=== PATIENT | female | born 1945 | race Caucasian/White ===

== ENCOUNTER 2017-09-12 12:15 | Emergency (ER) | payer MEDICARE, SELFPAY ==
[2017-09-12 12:18] VITALS: BP 121/100; PULSE 87; RESP 16; TEMP 36; O2SAT 96; BMI 28.2
--- NOTE | 2017-09-12 12:19 | ED.ABDPAIN ---
HPI - Abdominal Pain General Chief Complaint: Abdominal Pain Stated Complaint: Abdominal pain Time Seen by Provider: 09/12/17 12:18 Source: patient Mode of arrival: EMS Limitations: no limitations History of Present Illness HPI narrative: patient is a 71-year-old female with a history of controlled Parkinson's disease brought in from the [facility] by air ambulance for concerns of left lower quadrant abdominal pain. Patient states that on Tuesday of last week she developed urinary frequency. She states the symptoms were similar to prior urinary tract infections. she was able to make contact with her primary doctor who told her to start taking Keflex that she already had at home. She has been taking that since Tuesday. She states that this morning after breakfast she had a fairly sudden onset of pretty severe left lower quadrant abdominal pain. No fevers. No change in urine. No change in bowel. No prior abdominal surgeries. States that the symptoms improved after she received pain medication by the EMS crew brought her here to the emergency department. She states that her urinary symptoms that she had on Tuesday have improved. Related Data Home Medications Medication Instructions Recorded Confirmed Disabled Parking Permit 1 ea MISCELLANEOUS DIRECTED 09/12/17 09/12/17 carbidopa-levodopa [Sinemet CR] 1 tab PO BID 09/12/17 09/12/17 pramipexole 1.5 mg PO BID 09/12/17 09/12/17 Allergies Allergy/AdvReac Type Severity Reaction Status Date / Time Sulfa (Sulfonamide Allergy Unknown NOT SURE Verified 09/12/17 13:40 Antibiotics) [SULFA (SULFONAMIDE ANTIBIOTICS)] Review of Systems Constitutional Denies fever(s) and Denies headache(s) ENT Ears, Nose, Mouth, and Throat: Denies vertigo and Denies headache(s) Cardiovascular Denies chest pain, Denies palpitations and Denies dyspnea Respiratory Denies chest congestion, Denies cough and Denies dyspnea Gastrointestinal Gastrointestinal: Reports abdominal pain, Denies constipation, Denies heartburn, Denies diarrhea, Denies nausea and Denies vomiting Genitourinary Denies dysuria and Denies flank pain Musculoskeletal Denies myalgias and Denies arthralgias Integumentary/Breasts Denies lesions, Denies rash and Denies wounds Neurologic Denies confusion, Denies vertigo and Denies headache(s) Psychiatric Denies confusion Endocrine Denies palpitations Hematologic/Lymphatic Denies easy bleeding and Denies easy bruising Exam Initial Vital Signs Initial Vital Signs: Vital Signs Temperature 96.8 F L 09/12/17 12:18 Pulse Rate 87 09/12/17 12:18 Respiratory Rate 16 09/12/17 12:18 Blood Pressure 121/100 H 09/12/17 12:18 Pulse Oximetry 96 09/12/17 12:18 Const General: cooperative, comfortable and No acute distress Orientation: alert, awake and oriented x3 HENMT Head: normal to inspection, normocephalic and atraumatic Resp Effort & Inspection: normal respiratory effort and able to speak in complete sentences Auscultation: clear to auscultation bilaterally Cardio Rate: regular rate Rhythm: regular rhythm Pulses: radial pulses present GI Inspection: non-distended Palpation: soft, No firm, No guarding and tender ( Left lower quadrant pain) Back/Spine/Pelvis Back: No CVA tenderness Skin Lesions: no lesions Rashes: no rashes Extrem Other: Course Orders Ordered: ED Orders 09/12/17 12:40 Complete Blood Count AUTO DIFF Stat Comprehensive Metabolic Panel Stat Lactate (Lactic Acid) Stat Lipase Stat 09/12/17 12:51 CT abdomen pelvis w con Stat 09/12/17 12:52 Urinalysis and Microscopic Stat Sodium Chloride (Normal Saline 0.9%) 1,000 mls @ 500 mls/hr IV BOLUS ONE Stop: 09/12/17 14:50 Last Admin: 09/12/17 13:41 Dose: 500 mls/hr Vital Signs - 8 hr 09/12/17 12:18 09/12/17 13:46 Temperature 96.8 F L Pulse Rate 87 82 Respiratory Rate 16 15 Blood Pressure 121/100 H Blood Pressure [Left Arm] 134/62 H Pulse Oximetry 96 99 MDM - Abdominal Pain Medical Records Attestation: I reviewed the patient's medical records. Lab Data Attestation: I reviewed the patient's lab results. Result diagrams: 09/12/17 12:40 09/12/17 12:40 Lab Results 09/12/17 09/12/17 09/12/17 Range/Units 12:40 12:40 12:40 WBC 9.7 (4.5-11.0) X10^3/uL RBC 4.35 (4.0-5.2) X10^6/uL Hgb 12.8 (12.0-16.0) g/dL Hct 37.5 (36-46) % MCV 86.2 (80-100) fL MCH 29.5 (26-34) PG MCHC 34.2 (30-36) % RDW 13.4 (11.6-14.8) % Plt Count 303 (150-400) X10^3/uL Neut % (Auto) 62.3 (50-75) % Lymph % (Auto) 27.7 (25-40) % [place] % (Auto) 7.7 (3-14) % Eos % (Auto) 1.6 L (2-4) % Baso % (Auto) 0.7 (0-2) % Neut # (Auto) 6100 H (7631-6043) /uL Sodium 139 (137-145) mmol/L Potassium 4.5 (3.4-5.1) mmol/L Chloride 107 (98-107) mmol/L Carbon Dioxide 25 (22-32) mmol/L BUN 31 H (7-17) mg/dL Creatinine 0.70 (0.52-1.04) mg/dL Estimated GFR > 60.0 (>60) mL/min BUN/Creatinine Ratio 44.3 H (6-22) Glucose 88 (80-110) mg/dL Lactate 0.7 (0.7-2.1) mmol/L Calcium 9.1 (8.4-10.2) mg/dL Total Bilirubin 0.6 (0.2-1.3) mg/dL AST 20 (14-36) IU/L ALT 13 (9-52) IU/L Alkaline Phosphatase 108 (38-126) U/L Total Protein 7.0 (6.3-8.2) g/dL Albumin 4.0 (3.5-5.0) g/dL Globulin 3.0 (1.7-4.1) g/dL Albumin/Globulin Ratio 1.3 (1.0-2.8) Lipase 93 (23-300) U/L Point of care testing: Urine Dip Bedside Urine Glucose Negative Bedside Urine Bilirubin - Negative Bedside Urine Ketone - Negative Urine Specific [place] 1.030 Bedside Urine Occult Blood - Negative Bedside Urine pH 6.0 Bedside Urine Protein - Negative Bedside Urine Urobilinogen - Negative Bedside Urine Nitrite - Negative Bedside Urine Leukocytes - Negative Esterase Imaging Data CT scan - abdomen: Radiologist's impression: PROCEDURE: CT ABDOMEN PELVIS W CON INDICATIONS: Left-sided abdominal pain for last 3 days TECHNIQUE: After the administration of intravenous contrast, 5 mm thick sections acquired from the diaphragm to the symphysis. 5 mm coronal and sagittal reformats were acquired. For radiation dose reduction, the following was used: automated exposure control, adjustment of mA and/or kV according to patient size. COMPARISON: None. FINDINGS: Image quality: Excellent. ABDOMEN: Lung bases: Lung bases are clear. Heart size is normal. Solid organs: Liver is normal in size and enhancement. Gallbladder contains a single visualized calcified gallstone measuring approximately 3 x 4 mm. Biliary system is non dilated. Pancreas enhances normally. Spleen is normal in size and enhancement. No adrenal nodules. Kidneys demonstrate normal size and enhancement, without hydronephrosis. Peritoneum and bowel: Bowel loops demonstrate normal wall thickness and caliber. No free fluid or air. Nodes and vessels: No retroperitoneal or mesenteric adenopathy by size criteria. Aorta and inferior vena cava are normal in size. Miscellaneous: No ventral hernias. PELVIS: Genitourinary: Bladder wall thickness is normal. Miscellaneous: No inguinal hernias or adenopathy. Normal appendix found right lower quadrant. No evidence of acute appendicitis or diverticulitis. Bones: No suspicious bony lesions. No vertebral body compression fractures. IMPRESSION: A definite source of left-sided pain is not seen. A densely calcified small gallstone is seen within the gallbladder lumen but there is no sign of acute cholecystitis or biliary obstruction. Dictated by: Rocael Ledesma M.D. on 09/12/2017 at 13:48 Approved by: Rocael Ledesma M.D. on 09/12/2017 at 13:51 [facility] Narrative Medical decision making narrative: patient reports that her abdominal pain is now a 1 or 2/10. The fentanyl that she has received by EMS as certainly worn off by this time. She has a nonsurgical abdomen on my repeat exam. CT scan shows no acute intra-abdominal pathology. Her urinalysis was negative however she has been on a couple days of Keflex thus far. She was instructed she needed to continue the treatment for this despite the urinalysis today. No definitive etiology was found for her left lower quadrant abdominal pain. No indication for surgical consultation. No indication for admission to the hospital. No indication for switching her medications around. Her physical exam is not consistent with pyelonephritis. I discussed all this with the patient and her medical power of traffic law attorney was at bedside. They were given return precautions. They both expressed understanding and agreement with plan. Discharge Plan Departure Patient Disposition: Home, Self-Care Clinical Impression: Abdominal pain Instructions: DI for Abdominal Pain-Adult Activity Restrictions/Additional Instructions: recommend that you continue all of your antibiotics as directed. Continue a full 5 day course of the Keflex like we discussed. No definitive etiology was found of your abdominal pain today however the CT scan did not show any signs of emergent surgical or infectious issues. Return to the emergency department for any new or worsening symptoms. Call your primary care doctor for a follow-up in the next couple days. Prescriptions: No Action carbidopa-levodopa [Sinemet CR] 50-200 mg Tablet Extended Release 1 tab PO BID RF: 0 Disabled Parking Permit 1 ea miscellaneous DIRECTED RF: 0 pramipexole 1.5 mg Tablet 1.5 mg PO BID RF: 0
--- NOTE | 2017-09-12 12:42 | PC.NURSE ---
Pt reports she had frequency and lower abdominal pain on , 09/08. She called into the local clinic on [address] and stated she had Keflex at home that she was instructed to take for a UTI. She did not have a urine sample performed. Today she woke up with returning pain. Denies dysuria.
--- NOTE | 2017-09-12 12:51 | DI.CT.S_ITS ---
PROCEDURE: CT ABDOMEN PELVIS W CON INDICATIONS: Left-sided abdominal pain for last 3 days TECHNIQUE: After the administration of intravenous contrast, 5 mm thick sections acquired from the diaphragm to the symphysis. 5 mm coronal and sagittal reformats were acquired. For radiation dose reduction, the following was used: automated exposure control, adjustment of mA and/or kV according to patient size. COMPARISON: None. FINDINGS: Image quality: Excellent. ABDOMEN: Lung bases: Lung bases are clear. Heart size is normal. Solid organs: Liver is normal in size and enhancement. Gallbladder contains a single visualized calcified gallstone measuring approximately 3 x 4 mm. Biliary system is non dilated. Pancreas enhances normally. Spleen is normal in size and enhancement. No adrenal nodules. Kidneys demonstrate normal size and enhancement, without hydronephrosis. Peritoneum and bowel: Bowel loops demonstrate normal wall thickness and caliber. No free fluid or air. Nodes and vessels: No retroperitoneal or mesenteric adenopathy by size criteria. Aorta and inferior vena cava are normal in size. Miscellaneous: No ventral hernias. PELVIS: Genitourinary: Bladder wall thickness is normal. Miscellaneous: No inguinal hernias or adenopathy. Normal appendix found right lower quadrant. No evidence of acute appendicitis or diverticulitis. Bones: No suspicious bony lesions. No vertebral body compression fractures. IMPRESSION: A definite source of left-sided pain is not seen. A densely calcified small gallstone is seen within the gallbladder lumen but there is no sign of acute cholecystitis or biliary obstruction. Dictated by: Rocael Ledesma M.D. on 09/12/2017 at 13:48 Approved by: Rocael Ledesma M.D. on 09/12/2017 at 13:51
[2017-09-12 13:07] LABS: Add Manual Diff / Slide Review NO; Basophils Percent Auto 0.7 % (0-2); Eosinophils Percent Auto 1.6 % (2-4); Hematocrit 37.5 % (36-46); Hemoglobin 12.8 g/dL (12.0-16.0); Lymphocytes Percent Auto 27.7 % (25-40); Mean Corpuscular HGB Conc 34.2 % (30-36); Mean Corpuscular Hemoglobin 29.5 PG (26-34); Mean Corpuscular Volume 86.2 fL (80-100); Monocytes Percent Auto 7.7 % (3-14); Neutrophils Absolute Auto 6100 /uL (3000-5900); Neutrophils Percent Auto 62.3 % (50-75); Platelet Count 303 X10^3/uL (150-400); Red Blood Cell Count 4.35 X10^6/uL (4.0-5.2); Red Cell Distribution Width 13.4 % (11.6-14.8); White Blood Cell Count 9.7 X10^3/uL (4.5-11.0)
[2017-09-12 13:21] LABS: Alanine Aminotransferase 13 IU/L (9-52); Albumin Globulin Ratio 1.3 (1.0-2.8); Alkaline Phosphatase 108 U/L (38-126); Aspartate Aminotransferase 20 IU/L (14-36); BUN Creatinine Ratio 44.3 (6-22); Bilirubin Total 0.6 mg/dL (0.2-1.3); Blood Urea Nitrogen 31 mg/dL (7-17); Calcium 9.1 mg/dL (8.4-10.2); Carbon Dioxide 25 mmol/L (22-32); Chloride 107 mmol/L (98-107); Estimated Glomerular Filt Rate > 60.0 mL/min (>60); Glucose 88 mg/dL (80-110); Lipase 93 U/L (23-300); Potassium 4.5 mmol/L (3.4-5.1); Sodium 139 mmol/L (137-145)
[2017-09-12 13:22] LABS: HEMOLYSIS 58 (0-50)
[2017-09-12 13:23] LABS: Lactate (Lactic Acid) 0.7 mmol/L (0.7-2.1)
[2017-09-12] MEDS: SODIUM CHLORIDE 0.9% 1,000 ML 500 ML IV (13:41)
[2017-09-12 13:46] VITALS: BP 134/62; PULSE 82; RESP 15; O2SAT 99
== END 2017-09-12 14:33 | disposition home or self-care (01) ==
PROVIDERS: Emergency Provider Emergency Medicine; PCP Family Medicine
DX: R10.9 Unspecified abdominal pain (principal)
CPT/HCPCS: 36415; 74177; 80053; 81003; 83605; 83690; 85025; 96360; 99283; 99285

== ENCOUNTER → 2021-09-18 11:43 | Outpatient (CLI) | payer OTHER, MEDICARE, SELFPAY ==
[2021-09-18 18:42] LABS: Appearance Urine UA CLOUDY; Bilirubin Urine UA NEGATIVE (NEGATIVE); Color Urine UA YELLOW; Glucose Urine UA NEGATIVE (Negative); Ketones Urine UA TRACE (NEGATIVE); Leukocyte Esterase Urine UA NEGATIVE (NEGATIVE); Nitrite Urine UA NEGATIVE (Negative); Occult Blood Urine UA NEGATIVE (Negative); Protein Urine UA 1+ (Negative); Urobilinogen Urine UA 0.2 E.U./dL (0.2)
[2021-09-18 19:01] LABS: Amorphous Sediment Urine 2+; Bacteria Urine None Seen; Calcium Oxalate Crystals Urine Moderate; Culture Indicated Urine Cult Not Indicated; Mucus Urine 1+ (Negative); RBC Urine None Seen (0-5/HPF); Squamous Epithelial Cell Urine 0-1 /HPF (0-5/HPF); WBC Urine 0-1/HPF (0-5/HPF)
== END ==
PROVIDERS: PCP Family Medicine; Visit Provider Family Medicine
DX: N39.0 Urinary tract infection, site not specified (principal)
CPT/HCPCS: 81001

== ENCOUNTER → 2023-01-05 11:51 | Outpatient (CLI) | payer MEDICARE, SELFPAY ==
[2023-01-05 19:56] LABS: Add Manual Diff / Slide Review NO; Basophils Absolute Auto 0 /uL (0-100); Basophils Percent Auto 0.4 % (0-2); Eosinophils Absolute Auto 100 /uL (0-450); Eosinophils Percent Auto 0.7 % (2-4); Hematocrit 39.1 % (36-46); Hemoglobin 13.2 g/dL (12.0-16.0); Lymphocytes Absolute Auto 2100 /uL (1100-4500); Lymphocytes Percent Auto 24.1 % (25-40); Mean Corpuscular HGB Conc 33.8 % (30-36); Mean Corpuscular Hemoglobin 30.1 PG (26-34); Mean Corpuscular Volume 89.1 fL (80-100); Monocytes Absolute Auto 600 /uL (0-900); Monocytes Percent Auto 6.9 % (3-14); Neutrophils Absolute Auto 5800 /uL (1500-7000); Neutrophils Percent Auto 67.9 % (50-75); Platelet Count 340 X10^3/uL (150-400); Red Blood Cell Count 4.38 X10^6/uL (4.0-5.2); Red Cell Distribution Width 13.1 % (11.6-14.8); White Blood Cell Count 8.6 X10^3/uL (4.5-11.0)
[2023-01-05 20:13] LABS: BUN Creatinine Ratio 37.3 (6-22); Blood Urea Nitrogen 28 mg/dL (7-17); Calcium 9.6 mg/dL (8.4-10.2); Carbon Dioxide 23 mmol/L (22-32); Chloride 107 mmol/L (98-107); Estimated Glomerular Filt Rate > 60 mL/min (>60); Glucose 89 mg/dL (80-110); HEMOLYSIS < 15 (0-50); Potassium 4.4 mmol/L (3.4-5.1); Sodium 139 mmol/L (137-145)
[2023-01-05 20:36] LABS: TSH w/ Reflex to FT4 0.68 uIU/mL (0.47-4.68)
== END ==
PROVIDERS: PCP Family Medicine; Visit Provider Family Medicine
DX: F33.42 Major depressive disorder, recurrent, in full remission (principal); F32.9 Major depressive disorder, single episode, unspecified; R53.83 Other fatigue; R41.89 Other symptoms and signs involving cognitive functions and awareness; Z13.220 Encounter for screening for lipoid disorders; Z87.442 Personal history of urinary calculi; G20.A1 Parkinson's disease without dyskinesia, without mention of fluctuations
CPT/HCPCS: 80048; 84443; 85025

== ENCOUNTER → 2023-07-14 13:39 | Outpatient (CLI) | payer MEDICARE, SELFPAY ==
[2023-07-14 21:39] LABS: Appearance Urine UA CLEAR; Bilirubin Urine UA NEGATIVE (NEGATIVE); Color Urine UA YELLOW; Glucose Urine UA NEGATIVE (Negative); Ketones Urine UA NEGATIVE (NEGATIVE); Leukocyte Esterase Urine UA 1+ (NEGATIVE); Nitrite Urine UA POSITIVE (Negative); Occult Blood Urine UA NEGATIVE (Negative); Protein Urine UA TRACE (Negative); Specific Gravity Urine UA >=1.030 (1.000-1.035); Urobilinogen Urine UA 0.2 E.U./dL (0.2)
[2023-07-14 21:43] LABS: Bacteria Urine Many (>30); Culture Indicated Urine Specimen Cultured; RBC Urine 0-1/HPF (0-5/HPF); Squamous Epithelial Cell Urine 0-1 /HPF (0-5/HPF); Urine Volume 10mL (spun); WBC Urine 10-30/HPF (0-5/HPF)
== END ==
PROVIDERS: PCP Family Medicine; Visit Provider Physician Assistant
DX: Z91.89 Other specified personal risk factors, not elsewhere classified (principal)
CPT/HCPCS: 81001; 87077; 87086

== ENCOUNTER → 2023-08-31 09:31 | Outpatient (CLI) | payer MEDICARE, SELFPAY ==
--- NOTE | 2023-08-31 09:33 | DI.MRI.S_ITS ---
PROCEDURE: MR LUMBAR SPINE WO CON INDICATIONS: lumbar radiculopathy TECHNIQUE: Noncontrast sagittal T1 spin echo and T2 fast echo, sagittal STIR, and T2 fast spin echo through the lumbar spine. In cases with scoliosis, additional coronal T2 fast spin echo may be performed. COMPARISON: None. FINDINGS: Image quality: Excellent. Alignment and Curvature: Dextroscoliotic curvature. Mild retrolisthesis of L1 on L2, L2 on L3 and L3 on L4. Grade 1 anterolisthesis of L4 on L5 and L5 on S1. Bone Marrow: Multilevel Modic type 2 degenerative endplate changes. Marrow is of normal overall signal. No acute vertebral body compression fractures. Spinal Cord: Conus medullaris terminates at the L2 level. Visualized cord demonstrates normal signal and size. Paraspinous Soft Tissues: No paravertebral masses. T12-L1: Disc desiccation and moderate disc height loss. Mild disc bulge. No significant central canal or neural foraminal stenosis. L1-L2: Disc desiccation is severe disc height loss. Mild disc bulge. No central canal stenosis. Mild bilateral neural foraminal stenosis. L2-L3: Disc desiccation and severe disc height loss. Mild disc bulge. Facet arthropathy. Mild central canal stenosis. Moderate bilateral neural foraminal stenosis. L3-L4: Disc desiccation and moderate disc height loss. Posterior disc bulge, asymmetric to the right. Facet arthropathy and thickening of ligamentum flavum. Moderate central canal stenosis. Severe right and moderate left neural foraminal stenosis. L4-L5: Disc desiccation and moderate disc height loss. Mild disc bulge. Facet arthropathy and thickening of ligamentum flavum. Moderate central canal stenosis. Severe right and moderate left neural foraminal stenosis. L5-S1: Disc desiccation and moderate disc height loss. Posterior disc bulge. Facet arthropathy and thickening of the ligamentum flavum. Mild central canal stenosis. Severe right and moderate left neural foraminal stenosis. IMPRESSION: 1. Multilevel degenerative changes of the lumbar spine with dextroscoliotic curvature. 2. Moderate central canal stenosis at L3-L4 and L4-5. 3. Severe neural foraminal stenosis on the right at L3-L4, L4-L5 and L5-S1. Dictated by: John Quinones M.D. on 08/31/2023 at 12:02 Approved by: John Quinones M.D. on 08/31/2023 at 12:08
== END ==
LOC: MRI 09:33
PROVIDERS: PCP Family Medicine; Referring Provider Family Medicine; Visit Provider Family Medicine
DX: M47.26 Other spondylosis with radiculopathy, lumbar region (principal); M47.27 Other spondylosis with radiculopathy, lumbosacral region; M48.061 Spinal stenosis, lumbar region without neurogenic claudication; M48.07 Spinal stenosis, lumbosacral region; M41.9 Scoliosis, unspecified
CPT/HCPCS: 72148

== ENCOUNTER 2024-04-19 12:22 | Outpatient (CLI) | payer MEDICARE, MEDICAID, SELFPAY ==
[2024-04-19] VITALS (9 sets, daily range): BP systolic 123–139; BP diastolic 61–81; PULSE 70–85; RESP 16–20; TEMP 36.6; O2SAT 96–100
--- NOTE | 2024-04-19 12:23 | DI.RAD.S_ITS ---
PROCEDURE: PAIN L INTERLAMINAR/CAUDAL INJ INDICATIONS: para Right L4/5 TL NIECY COMPARISON: None. FINDINGS/IMPRESSION: Fluoroscopic spot filming was performed to verify placement of spinal needles at the L4-5 level(s), as labeled on the films. Appropriate location(s) of the needle tip(s) was confirmed by injection of iodinated contrast. Dictated by: Xiomara Mayes M.D. on 04/19/2024 at 16:40 Approved by: Xiomara Mayes M.D. on 04/19/2024 at 16:40
--- NOTE | 2024-04-19 13:32 | P.PCN_ITS ---
Date/Time/Diagnoses Date of procedure: 04/19/24 Time of procedure: 14:07 Pre-procedure diagnosis: 1. HNP WITH RADICULAR FEATURES, 2. MULTILEVEL CENTRAL STENOSIS, Post-procedure diagnosis: same Procedure Notes Procedure: 1. FLUOROSCOPICALLY GUIDED CONTRAST CONTROLLED INTERLAMINAR EPIDURAL STEROID INJECTION - L3/4 Indications: More is referred by Dr. Osborn for treatment of Bilateral Foraminal Stenosis L>R LE symptoms. Physician: Joe Lopez Total Fluoroscopy time (seconds): 8 Total sedation minutes: 14 Complications: none Procedure in detail & Post-procedure care: FINDINGS Multilevel Central Spinal Stenosis with Nerve Root Compression DESCRIPTION OF PROCEDURE Fluoroscopically guided, contrast-controlled L3/4 translaminar epidural steroid injection. Following review of allergy and review of potential side effects and complications, including, but not necessarily limited to, infection, allergic reaction, local tissue breakdown, temporary as well as permanent nerve injury, paralysis, stroke and possible , the patient indicated that the patient understood and agreed to proceed. An informed consent document was signed by the patient, witnessed by a nurse, and placed in the patient's chart. Additionally, other treatment options including modalities, medications, and physical therapy were reviewed with the patient. After review of previous anaesthesic history and IV conscious sedation the patient was deemed safe to proceed with today?s procedure with IV conscious sedation as ASA class II designation. Safety time-out was performed to confirm patient ID, procedure to be performed and site of procedure. IV sedation was accomplished with a combination of 1mg of Versed was administered by the RN after DO order, titrated to patient comfort during the course of the procedure while the patient remained responsive to all verbal commands. In the prone position, following sterile prep and drape of the lumbar region, the L3/4 translaminar space was identified fluoroscopically. The skin was anesthetized via a 25-gauge, 1.5-inch needle with 1% lidocaine solution. At this point, a 22-gauge short bevel spinal needle was atraumatically introduced and advanced under fluoroscopic guidance into the region of the L3/4 translaminar space. Depth was confirmed on lateral view. Radiological data, including multiple fluoroscopic views of the lumbar spine, reveal a spinal needle at the L3/4 translaminar space. Lateral views then show placement of the needle in the epidural space. Subsequent views show contrast material flowing superiorly and inferiorly in the epidural space. No vascular or intrathecal uptake is observed. At this point, using loss of resistance technique with saline and air, the epidural space was entered. This was confirmed following negative aspiration with injection of approximately 1.5 cc of Isovue 200, showing excellent epidural flow without vascular or intrathecal uptake. At this point, 1cc of 1% lidocaine solution combined with 2cc or 10mg of dexamethasone and 6mg of betamethasone was injected without incident. The patient tolerated the procedure well without signs or symptoms of complications prior to transfer to the recovery area continued monitoring without incident. The patient was then transferred to the recovery area where they were observed for an appropriate period of time after the injection. The patient reported a VAS score of 8 prior to the procedure and a post- procedure VAS of 1. POST OP INSTRUCTIONS The patient was provided a Pain Log to continue to record their response to the target-specific procedure prior to follow-up visit with their referring physician. Additionally, specific post-injection care instructions and a contact number to our office were provided if concerns arise regarding possible complications associated with the procedure are suspected.
[2024-04-19] MEDS: MIDAZOLAM 2 MG/2 ML VIAL 1 MG IV (14:12)
[2024-04-19] MEDS: BETAMETHASONE 30 MG/5 ML MDV 12 MG INJ (14:18)
[2024-04-19] MEDS: iopamidoL 15 ML VIAL 3 ML INJ (14:18)
[2024-04-19] MEDS: DEXAMETHASONE 10 MG/ML VIAL INJ (14:19)
[2024-04-19] MEDS: BUPIVACAINE 0.25% (PF) VIAL 2 ML INJ (14:19)
== END 2024-04-19 14:54 | disposition home or self-care (01) ==
LOC: RAD 12:23
PROVIDERS: PCP Family Medicine; Referring Provider Physical Medicine & Rehabilitation; Visit Provider Physical Medicine & Rehabilitation
DX: M51.16 Intervertebral disc disorders with radiculopathy, lumbar region (principal); M48.061 Spinal stenosis, lumbar region without neurogenic claudication
CPT/HCPCS: 62323; 99152; J0702; J1100; J2250; J3490

== ENCOUNTER → 2024-05-15 14:57 | Outpatient (CLI) | payer MEDICARE, MEDICAID, SELFPAY ==
[2024-05-15 19:24] LABS: Add Manual Diff / Slide Review NO; Basophils Absolute Auto 100 /uL (0-100); Basophils Percent Auto 0.8 % (0-2); Eosinophils Absolute Auto 300 /uL (0-450); Eosinophils Percent Auto 2.9 % (2-4); Hematocrit 38.3 % (36-46); Lymphocytes Absolute Auto 2400 /uL (1100-4500); Lymphocytes Percent Auto 26.3 % (25-40); Mean Corpuscular HGB Conc 33.9 % (30-36); Mean Corpuscular Hemoglobin 30.8 PG (26-34); Mean Corpuscular Volume 90.7 fL (80-100); Monocytes Absolute Auto 800 /uL (0-900); Monocytes Percent Auto 8.5 % (3-14); Neutrophils Absolute Auto 5500 /uL (1500-7000); Neutrophils Percent Auto 61.5 % (50-75); Platelet Count 338 X10^3/uL (150-400); Red Blood Cell Count 4.22 X10^6/uL (4.0-5.2); Red Cell Distribution Width 13.6 % (11.6-14.8)
[2024-05-15 19:51] LABS: Albumin 4.1 g/dL (3.5-5.0); Albumin Globulin Ratio 1.6 (1.0-2.8); Carbon Dioxide 24 mmol/L (22-32); Globulin 2.6 g/dL (1.7-4.1); Total Protein 6.7 g/dL (6.3-8.2)
[2024-05-15 20:04] LABS: Prothrombin Time 11.4 SECONDS (9.4-12.5)
[2024-05-15 20:06] LABS: PTT Partial Thromboplastin Tim 35 SECONDS (25.1-36.5)
[2024-05-15 20:50] LABS: Alanine Aminotransferase 6 IU/L (<35); Alkaline Phosphatase 89 U/L (38-126); Aspartate Aminotransferase 22 IU/L (14-36); BUN Creatinine Ratio 33.3 (6-22); Bilirubin Total 0.5 mg/dL (0.2-1.3); Blood Urea Nitrogen 30 mg/dL (7-17); Calcium 9.3 mg/dL (8.4-10.2); Chloride 108 mmol/L (98-107); Estimated Glomerular Filt Rate > 60 mL/min (>60); Glucose 81 mg/dL (80-110); HEMOLYSIS < 15 (0-50); Potassium 4.7 mmol/L (3.4-5.1); Sodium 140 mmol/L (137-145)
== END ==
PROVIDERS: PCP Family Medicine; Visit Provider Neurological Surgery
DX: Z01.812 Encounter for preprocedural laboratory examination (principal); G31.84 Mild cognitive impairment of uncertain or unknown etiology; Z96.89 Presence of other specified functional implants
CPT/HCPCS: 80053; 85025; 85610; 85730